=== PATIENT | male | born 1960 | race Caucasian/White ===

== ENCOUNTER → 2018-10-05 | Outpatient (CLI) | payer MEDICARE, MEDICAID ==
[~2018-10-05] MED LIST: E-Z-GAS II EFFERVESCENT PACKET (SODIUM BICARB./CITRIC ACID/SIMETHICONE) As Ordered ONE; E-Z-HD 98% w/w 340GM SUSP BTL As Ordered ONE; E-Z-PAQUE 96% w/w SUSP 176GM BTL As Ordered ONE; ISOVUE-370 76% 100ML VIAL (Q9967) As Ordered ONE
--- NOTE | 2018-10-05 09:52 | REP ---
CT NECK WITH CONTRAST: HISTORY: Neck mass. CONTRAST: Isovue 370, 75 mL. The naso-, sarwat- and hypopharynx, larynx, and subglottic trachea are normal in appearance. There is fatty replacement of the parotid glands. The submandibular and thyroid glands are normal in size and density. Small lymph nodes less than 1 cm in size are present in the internal jugular chains, posterior triangles, submandibular and submental areas. Atherosclerotic calcification is present at the carotid bifurcations. Degenerative change is present in the cervical spine. The lung apices are clear. Minimal mucosal thickening is present in the right maxillary sinus. IMPRESSION: There is no neck mass or adenopathy. Electronically Signed by Martir Vasquez MD 10/05/2018 09:53 A
--- NOTE | 2018-10-05 16:37 | REP ---
Esophagram The procedure was performed under the direct supervision of Dr. Sullivan. The images were reviewed with Dr. Sullivan. A single view PA chest x-ray is submitted as a cassandra developer film. The superior mediastinal structures are midline. The heart size is within normal limits. The lungs are clear. Liquid barium and gas producing granules were given in the erect position as well as liquid barium in the prone oblique positions in order to perform a double contrast esophagram examination. During the oral and pharyngeal stages of deglutition there is laryngeal penetration. There are esophageal transport there are tertiary waves demonstrated. There is no esophagitis stricture mucosal ring or hiatal hernia. Gastroesophageal reflux is not demonstrated on this examination. Impression: 1. Laryngeal penetration 2. Tertiary waves 0.7 minutes of fluoro time was utilized for this procedure. Reviewed by TAMELA Thompson 10/05/2018 03:56 P Electronically Signed by Yeison Sullivan MD 10/05/2018 04:28 P
== END ==
LOC: M RAD 08:52
PROVIDERS: ATTEND Otolaryngology
DX: R22.1 Localized swelling, mass and lump, neck (principal); R13.10 Dysphagia, unspecified; Z86.018 Personal history of other benign neoplasm
CPT/HCPCS: 70491; 74220; Q9967

== ENCOUNTER 2021-09-22 07:18 | Inpatient (IN) | payer MEDICARE, MEDICAID ==
[~2021-09-22] VITALS: Ht 182.9 cm; Wt 185.7 kg
[2021-09-22 10:45] VITALS: BP 108/64
[2021-09-22 12:00] VITALS: BP 111/60
[2021-09-22] MEDS ORDERED: CEFEPIME HCL 1 GM in D5W MINI-BAG PLUS 50 ML IV SCH (12:45)
[2021-09-22] MEDS ORDERED: ALBUTEROL SULFATE 2.5 MG/0.5 ML INH NEB SOLN NEB PRN (12:55)
[2021-09-22 13:12] LABS: ABG BASE EXCESS -1.3 (-2.0-2.0); ABG HCO3 26.6 MEQ/L (22.0-26.0); ABG O2 SATURATION 94.6 % (95.0-99.0); ABG PARTIAL PRESSURE CO2 57.6 mmHg (35.0-45.0); ABG PARTIAL PRESSURE O2 78.1 mmHg (75.0-100.0); ABG STANDARD HCO3 23.3 MEQ/L (22.0-26.0); ABG TOTAL CO2 28.4 MEQ/L (22.0-29.0); ABG pH (ARTERIAL) 7.283 UNITS (7.350-7.450)
[2021-09-22] MEDS ORDERED: HOME MED LIST COMPLETE! XX SCH (13:15)
[2021-09-22 13:19] LABS: BILIRUBIN, URINE MANUAL NEGATIVE (NEGATIVE); GLUCOSE, URINE (UA) MANUAL NEGATIVE (NEGATIVE); KETONE, URINE MANUAL NEGATIVE (NEGATIVE); UROBILINOGEN, URINE MANUAL NORMAL (NORMAL)
[2021-09-22 13:28] LABS: BACTERIA, URINE MOD AMOUNT; SQUAMOUS EPITHELIAL CELL URINE SMALL AMOUNT /hpf (SMALL AMT)
[2021-09-22 13:29] LABS: MUCUS, URINE LARGE AMOUNT (NEGATIVE)
[2021-09-22 13:30] LABS: HYALINE CAST, URINE 40-50 /lpf (0-1)
[2021-09-22 13:31] LABS: GRANULAR CAST, URINE 0-1 /lpf; TRANSITIONAL EPI CELLS, URINE SMALL AMOUNT /hpf
[2021-09-22 13:34] LABS: BASO # 0.1 10^3/uL (0.0-0.2); BASO % 0.4 % (0.0-1.0); EOS # 0.1 10^3/uL (0.0-0.5); EOS % 0.5 % (0.0-3.0); HEMATOCRIT 48.8 % (42.0-52.0); LYMPH # 0.4 10^3/uL (1.5-5.0); LYMPH % 2.2 % (24.0-44.0); MEAN CORPUSCULAR HEMOGLOBIN 29.7 pg (27.0-33.0); MEAN CORPUSCULAR HGB CONC 32.8 g/dl (32.0-36.5); MEAN CORPUSCULAR VOLUME 90.7 fl (80.0-96.0); MONO # 0.5 10^3/uL (0.0-0.8); MONO % 3.2 % (2.0-8.0); NEUTROPHILS % 87.5 % (36.0-66.0); PLATELET COUNT, AUTOMATED 111 10^3/uL (150-450); RED BLOOD COUNT 5.38 10^6/uL (4.30-6.10); WHITE BLOOD COUNT 15.9 10^3/uL (4.0-10.0)
[2021-09-22 13:44] LABS: INR 1.46; PROTHROMBIN TIME 18.2 SECONDS (12.7-14.5)
[2021-09-22 13:45] LABS: PARTIAL THROMBOPLASTIN TIME 37.7 SECONDS (25.9-37.0)
[2021-09-22 14:00] LABS: ALBUMIN 3.2 GM/DL (3.2-5.2); BILIRUBIN,TOTAL 3.6 MG/DL (0.2-1.0); CALCIUM LEVEL 8.3 MG/DL (8.5-10.1); GLOMERULAR FILTRATION RATE 36.7 (>56); POTASSIUM SERUM 5.1 MEQ/L (3.5-5.1); TOTAL PROTEIN 6.8 GM/DL (6.4-8.2)
[2021-09-22 14:37] LABS: CK-MB VALUE MASS 17.3 NG/ML (<3.6); MB/CK RELATIVE INDEX 1.15 (< OR =4)
[2021-09-22] MEDS ORDERED: ASPI81CH33 PO (14:46)
[2021-09-22] MEDS ORDERED: ATOR1TAB21 PO (14:46)
[2021-09-22] MEDS ORDERED: SPIR-10 PO (14:46)
[2021-09-22] MEDS ORDERED: AMLO1TAB25 PO (14:46)
[2021-09-22] MEDS ORDERED: CARV25TA PO (14:46)
[2021-09-22] MEDS ORDERED: METF-838 PO (14:46)
[2021-09-22] MEDS ORDERED: ARNU1INH IN (14:46)
[2021-09-22] MEDS ORDERED: NITR0.4S14 SL (14:46)
[2021-09-22] MEDS ORDERED: LEVO88TA3 PO (14:46)
[2021-09-22] MEDS ORDERED: OMEP-173 PO (14:46)
[2021-09-22] MEDS ORDERED: VENTAER INH (14:46)
[2021-09-22 14:48] LABS: CHOLESTEROL RISK RATIO 2.428 (<5); THYROID STIMULATING HORMONE 1.69 uIU/ML (0.358-3.740)
[2021-09-22 15:15] LABS: HEMOGLOBIN A1c 7.4 %
[2021-09-22] MEDS: CEFEPIME HCL 2 GM in D5W MINI-BAG PLUS 50 ML IV SCH (15:22)
[2021-09-22] MEDS: NS 1,000 ML IV SCH ×2 (15:22→21:55)
[2021-09-22] MEDS: HEPARIN SOD (PORCINE) 5000UNITS/ML 1ML VIAL/SYRINGE SQ SCH ×2 (15:23→21:16)
[2021-09-22] MEDS: ONDANSETRON 4MG/2ML VIAL IV SCH ×2 (15:23→20:00)
[2021-09-22] MEDS: IPRATROPIUM 0.5MG/ALBUTEROL 2.5MG INH SOL UD 3ML (DUONEB) NEB SCH ×2 (16:00→19:40)
[2021-09-22 16:03] VITALS: BP 106/63
[2021-09-22] MEDS: VANCOMYCIN HCL 1,000 MG, VIAL MATE ADAPTER 1 EACH in NS 250 ML IV SCH (16:45)
[2021-09-22] MEDS ORDERED: VANCOMYCIN HCL 1,000 MG, VIAL MATE ADAPTER 1 EACH in NS 250 ML IV ONE (17:00)
[2021-09-22 19:54] VITALS: BP 130/59
[2021-09-22 23:54] VITALS: BP 105/52
[2021-09-23] MEDS: ONDANSETRON 4MG/2ML VIAL IV SCH ×4 (01:00→19:48)
[2021-09-23] MEDS: ACETAMINOPHEN TAB 650MG DOSE (2X325MG) PO PRN ×2 (02:08→16:55)
[2021-09-23] MEDS: CEFEPIME HCL 2 GM in D5W MINI-BAG PLUS 50 ML IV SCH ×3 (02:12→18:19)
[2021-09-23] MEDS: VANCOMYCIN HCL 1,000 MG, VIAL MATE ADAPTER 1 EACH in NS 250 ML IV SCH (03:11)
[2021-09-23 04:05] VITALS: BP 123/64
[2021-09-23] MEDS: HEPARIN SOD (PORCINE) 5000UNITS/ML 1ML VIAL/SYRINGE SQ SCH ×3 (05:09→21:53)
[2021-09-23] MEDS: NS 1,000 ML IV SCH ×2 (06:42→18:20)
[2021-09-23 07:42] LABS: HEMATOCRIT 44.7 % (42.0-52.0); HEMOGLOBIN 14.4 g/dl (13.5-17.5); MEAN CORPUSCULAR HEMOGLOBIN 29.2 pg (27.0-33.0); MEAN CORPUSCULAR HGB CONC 32.2 g/dl (32.0-36.5); MEAN CORPUSCULAR VOLUME 90.7 fl (80.0-96.0); PLATELET COUNT, AUTOMATED 105 10^3/uL (150-450); RED BLOOD COUNT 4.93 10^6/uL (4.30-6.10); WHITE BLOOD COUNT 13.1 10^3/uL (4.0-10.0)
[2021-09-23] MEDS: IPRATROPIUM 0.5MG/ALBUTEROL 2.5MG INH SOL UD 3ML (DUONEB) NEB SCH ×4 (07:51→20:46)
[2021-09-23 08:05] LABS: ALT/SGPT 65 U/L (12-78); BILIRUBIN,TOTAL 2.7 MG/DL (0.2-1.0); BLOOD UREA NITROGEN 38 MG/DL (7-18); CALCIUM LEVEL 8.1 MG/DL (8.5-10.1); CARBON DIOXIDE LEVEL 31 MEQ/L (21-32); CHLORIDE LEVEL 95 MEQ/L (98-107); CREATININE FOR GFR 1.15 MG/DL (0.70-1.30); GLOMERULAR FILTRATION RATE > 60.0 (>56); GLUCOSE, FASTING 116 MG/DL (70-100); POTASSIUM SERUM 4.7 MEQ/L (3.5-5.1); SODIUM LEVEL 129 MEQ/L (136-145); TOTAL PROTEIN 7.2 GM/DL (6.4-8.2)
[2021-09-23 08:16] VITALS: BP 125/57
[2021-09-23 12:00] VITALS: BP 108/64
[2021-09-23] MEDS ORDERED: ISOVUE-370 76% 100ML VIAL As Ordered ONE (14:44)
[2021-09-23] MEDS: methylPREDNISolone 125MG 2ML VIAL IV SCH (16:55)
[2021-09-23 20:00] VITALS: BP 110/62
[2021-09-24] VITALS: BP 115/59
[2021-09-24] MEDS: ONDANSETRON 4MG/2ML VIAL IV SCH ×4 (01:52→21:12)
[2021-09-24] MEDS: methylPREDNISolone 125MG 2ML VIAL IV SCH ×2 (01:52→14:35)
[2021-09-24] MEDS: CEFEPIME HCL 2 GM in D5W MINI-BAG PLUS 50 ML IV SCH ×2 (01:53→09:04)
[2021-09-24 04:00] VITALS: BP 131/64
[2021-09-24] MEDS: HEPARIN SOD (PORCINE) 5000UNITS/ML 1ML VIAL/SYRINGE SQ SCH ×3 (05:49→21:06)
[2021-09-24 05:56] LABS: HEMATOCRIT 40.7 % (42.0-52.0); HEMOGLOBIN 13.2 g/dl (13.5-17.5); MEAN CORPUSCULAR HEMOGLOBIN 29.3 pg (27.0-33.0); MEAN CORPUSCULAR HGB CONC 32.4 g/dl (32.0-36.5); MEAN CORPUSCULAR VOLUME 90.4 fl (80.0-96.0); WHITE BLOOD COUNT 8.9 10^3/uL (4.0-10.0)
[2021-09-24 05:58] LABS: PLATELET COUNT, AUTOMATED 82 10^3/uL (150-450)
[2021-09-24 06:27] LABS: ALBUMIN 2.8 GM/DL (3.2-5.2); ALT/SGPT 54 U/L (12-78); BILIRUBIN,TOTAL 1.4 MG/DL (0.2-1.0); BLOOD UREA NITROGEN 25 MG/DL (7-18); CALCIUM LEVEL 7.4 MG/DL (8.5-10.1); CARBON DIOXIDE LEVEL 32 MEQ/L (21-32); CHLORIDE LEVEL 96 MEQ/L (98-107); CREATININE FOR GFR 0.69 MG/DL (0.70-1.30); GLOMERULAR FILTRATION RATE > 60.0 (>56); GLUCOSE, FASTING 178 MG/DL (70-100); NT-PRO BNP 1557 PG/ML (<125); POTASSIUM SERUM 5.1 MEQ/L (3.5-5.1); SODIUM LEVEL 130 MEQ/L (136-145); TOTAL PROTEIN 6.4 GM/DL (6.4-8.2)
[2021-09-24] MEDS: IPRATROPIUM 0.5MG/ALBUTEROL 2.5MG INH SOL UD 3ML (DUONEB) NEB SCH ×4 (07:08→19:43)
[2021-09-24 07:12] VITALS: BP 157/91
[2021-09-24] MEDS: NS 1,000 ML IV SCH ×2 (08:09→17:16)
[2021-09-24] MEDS ORDERED: GLUCAGON INJ 1MG VIAL SC PRN (10:10)
[2021-09-24] MEDS ORDERED: GLUCOSE 4GM CHEW TABLET PO PRN (10:10)
[2021-09-24] MEDS ORDERED: DEXTROSE 50% 50 ML SYRINGE IV PRN (10:10)
[2021-09-24 12:00] VITALS: BP 104/51
[2021-09-24] MEDS ORDERED: HumaLOG INSULIN (NovoLOG) PER UNIT SC SCH (12:00)
[2021-09-24 16:23] VITALS: BP 115/59
[2021-09-24] MEDS: HumaLOG INSULIN (NovoLOG) PER UNIT SC SCH ×2 (18:05→21:00)
[2021-09-24] MEDS: CIPROFLOXACIN 400 MG in IV 1 EA IV SCH (18:06)
[2021-09-24 20:04] VITALS: BP 136/73
[2021-09-24] MEDS ORDERED: ACETAMINOPHEN 500 MG TAB PO ONE (21:55)
[2021-09-24] MEDS ORDERED: LIDOCAINE 5% (LIDODERM) PATCH TD ONE (21:55)
[2021-09-25] VITALS (7 sets, daily range): BP systolic 128–161; BP diastolic 51–85
[2021-09-25] MEDS: ONDANSETRON 4MG/2ML VIAL IV SCH ×2 (02:00→08:00)
[2021-09-25] MEDS: methylPREDNISolone 125MG 2ML VIAL IV SCH (02:24)
[2021-09-25] MEDS: NS 1,000 ML IV SCH (04:41)
[2021-09-25] MEDS: CIPROFLOXACIN 400 MG in IV 1 EA IV SCH ×2 (05:29→17:52)
[2021-09-25] MEDS: HEPARIN SOD (PORCINE) 5000UNITS/ML 1ML VIAL/SYRINGE SQ SCH ×3 (05:30→20:56)
[2021-09-25 06:23] LABS: HEMATOCRIT 40.8 % (42.0-52.0); HEMOGLOBIN 13.1 g/dl (13.5-17.5); MEAN CORPUSCULAR HEMOGLOBIN 29.4 pg (27.0-33.0); MEAN CORPUSCULAR HGB CONC 32.1 g/dl (32.0-36.5); MEAN CORPUSCULAR VOLUME 91.7 fl (80.0-96.0); RED BLOOD COUNT 4.45 10^6/uL (4.30-6.10); WHITE BLOOD COUNT 9.8 10^3/uL (4.0-10.0)
[2021-09-25 06:24] LABS: PLATELET COUNT, AUTOMATED 91 10^3/uL (150-450)
[2021-09-25 06:58] LABS: ALBUMIN 2.8 GM/DL (3.2-5.2); ALT/SGPT 50 U/L (12-78); BILIRUBIN,TOTAL 0.6 MG/DL (0.2-1.0); BLOOD UREA NITROGEN 27 MG/DL (7-18); CALCIUM LEVEL 7.7 MG/DL (8.5-10.1); CARBON DIOXIDE LEVEL 32 MEQ/L (21-32); CHLORIDE LEVEL 99 MEQ/L (98-107); CREATININE FOR GFR 0.76 MG/DL (0.70-1.30); GLOMERULAR FILTRATION RATE > 60.0 (>56); GLUCOSE, FASTING 180 MG/DL (70-100); POTASSIUM SERUM 5.5 MEQ/L (3.5-5.1); SODIUM LEVEL 132 MEQ/L (136-145); TOTAL PROTEIN 6.4 GM/DL (6.4-8.2)
[2021-09-25] MEDS: IPRATROPIUM 0.5MG/ALBUTEROL 2.5MG INH SOL UD 3ML (DUONEB) NEB SCH ×4 (08:03→20:00)
[2021-09-25] MEDS: **NOTE PATIENT COMMENT** MISC XX SCH (08:29)
[2021-09-25] MEDS: predniSONE 20 MG TAB PO SCH (08:29)
[2021-09-25] MEDS: HumaLOG INSULIN (NovoLOG) PER UNIT SC SCH ×4 (08:29→20:55)
[2021-09-25] MEDS: LEVOTHYROXINE 88MCG TABLET (0.088 MG) PO SCH (09:46)
[2021-09-25] MEDS ORDERED: ONDANSETRON 4MG/2ML VIAL IV PRN (09:50)
[2021-09-25] MEDS: ASPIRIN 81 MG CHEW TABLET PO SCH (09:56)
[2021-09-25] MEDS: ATORVASTATIN 20 MG TAB PO SCH (09:56)
[2021-09-25] MEDS: OMEPRAZOLE 20MG CAP PO SCH (09:56)
[2021-09-25] MEDS ORDERED: SOD POLYSTYRENE SULFONATE SUSP 15 GM/60 ML UD PO ONE (16:00)
[2021-09-25] MEDS: LIDOCAINE 5% (LIDODERM) PATCH TD SCH (23:44)
[2021-09-26 03:15] VITALS: BP 131/74
[2021-09-26] MEDS: HEPARIN SOD (PORCINE) 5000UNITS/ML 1ML VIAL/SYRINGE SQ SCH ×3 (05:05→22:00)
[2021-09-26] MEDS: LEVOTHYROXINE 88MCG TABLET (0.088 MG) PO SCH (05:06)
[2021-09-26] MEDS: CIPROFLOXACIN 400 MG in IV 1 EA IV SCH (05:07)
[2021-09-26 05:35] LABS: HEMATOCRIT 40.4 % (42.0-52.0); MEAN CORPUSCULAR HEMOGLOBIN 29.4 pg (27.0-33.0); MEAN CORPUSCULAR HGB CONC 32.2 g/dl (32.0-36.5); MEAN CORPUSCULAR VOLUME 91.4 fl (80.0-96.0); PLATELET COUNT, AUTOMATED 106 10^3/uL (150-450); RED BLOOD COUNT 4.42 10^6/uL (4.30-6.10); WHITE BLOOD COUNT 10.3 10^3/uL (4.0-10.0)
[2021-09-26 05:54] LABS: ALBUMIN 2.7 GM/DL (3.2-5.2); ALT/SGPT 47 U/L (12-78); BILIRUBIN,TOTAL 0.7 MG/DL (0.2-1.0); BLOOD UREA NITROGEN 28 MG/DL (7-18); CALCIUM LEVEL 7.7 MG/DL (8.5-10.1); CARBON DIOXIDE LEVEL 34 MEQ/L (21-32); CHLORIDE LEVEL 99 MEQ/L (98-107); CREATININE FOR GFR 0.75 MG/DL (0.70-1.30); GLOMERULAR FILTRATION RATE > 60.0 (>56); GLUCOSE, FASTING 121 MG/DL (70-100); POTASSIUM SERUM 4.9 MEQ/L (3.5-5.1); SODIUM LEVEL 134 MEQ/L (136-145); TOTAL PROTEIN 5.9 GM/DL (6.4-8.2)
[2021-09-26 08:00] VITALS: BP 132/88
[2021-09-26] MEDS: IPRATROPIUM 0.5MG/ALBUTEROL 2.5MG INH SOL UD 3ML (DUONEB) NEB SCH ×3 (08:00→15:03)
[2021-09-26] MEDS: OMEPRAZOLE 20MG CAP PO SCH (08:17)
[2021-09-26] MEDS: ATORVASTATIN 20 MG TAB PO SCH (08:17)
[2021-09-26] MEDS: predniSONE 20 MG TAB PO SCH (08:17)
[2021-09-26] MEDS: HumaLOG INSULIN (NovoLOG) PER UNIT SC SCH ×4 (08:17→20:48)
[2021-09-26] MEDS: **NOTE PATIENT COMMENT** MISC XX SCH (08:17)
[2021-09-26] MEDS: ASPIRIN 81 MG CHEW TABLET PO SCH (08:17)
[2021-09-26] MEDS ORDERED: BACTRIM 160MG/800MG DS TAB PO SCH (09:00)
[2021-09-26] MEDS: LACTOBACILLUS ACIDOPHILUS CAP (BACID) PO SCH ×2 (10:13→17:35)
[2021-09-26 16:00] VITALS: BP 142/76
[2021-09-26 19:18] VITALS: BP 135/74
[2021-09-26] MEDS: LIDOCAINE 5% (LIDODERM) PATCH TD SCH (20:47)
[2021-09-26] MEDS: CARVedilol 12.5 MG TAB PO SCH (20:47)
[2021-09-26] MEDS: BACTRIM 160MG/800MG DS TAB PO SCH (20:48)
[2021-09-27 04:00] VITALS: BP 135/86
[2021-09-27 05:37] LABS: HEMATOCRIT 39.8 % (42.0-52.0); HEMOGLOBIN 12.8 g/dl (13.5-17.5); MEAN CORPUSCULAR HEMOGLOBIN 29.3 pg (27.0-33.0); MEAN CORPUSCULAR HGB CONC 32.2 g/dl (32.0-36.5); MEAN CORPUSCULAR VOLUME 91.1 fl (80.0-96.0); PLATELET COUNT, AUTOMATED 104 10^3/uL (150-450); RED BLOOD COUNT 4.37 10^6/uL (4.30-6.10); WHITE BLOOD COUNT 6.2 10^3/uL (4.0-10.0)
[2021-09-27] MEDS: HEPARIN SOD (PORCINE) 5000UNITS/ML 1ML VIAL/SYRINGE SQ SCH ×3 (05:43→21:54)
[2021-09-27] MEDS: LEVOTHYROXINE 88MCG TABLET (0.088 MG) PO SCH (05:43)
[2021-09-27 05:58] LABS: ALBUMIN 2.8 GM/DL (3.2-5.2); ALT/SGPT 38 U/L (12-78); BILIRUBIN,TOTAL 0.6 MG/DL (0.2-1.0); BLOOD UREA NITROGEN 27 MG/DL (7-18); CALCIUM LEVEL 7.9 MG/DL (8.5-10.1); CARBON DIOXIDE LEVEL 37 MEQ/L (21-32); CHLORIDE LEVEL 101 MEQ/L (98-107); GLOMERULAR FILTRATION RATE > 60.0 (>56); GLUCOSE, FASTING 119 MG/DL (70-100); POTASSIUM SERUM 4.7 MEQ/L (3.5-5.1); SODIUM LEVEL 140 MEQ/L (136-145); TOTAL PROTEIN 5.8 GM/DL (6.4-8.2)
[2021-09-27] MEDS: HumaLOG INSULIN (NovoLOG) PER UNIT SC SCH ×4 (07:30→21:00)
[2021-09-27 07:59] VITALS: BP 135/84
[2021-09-27] MEDS: **NOTE PATIENT COMMENT** MISC XX SCH (08:41)
[2021-09-27] MEDS: CARVedilol 12.5 MG TAB PO SCH ×2 (08:46→21:55)
[2021-09-27] MEDS: OMEPRAZOLE 20MG CAP PO SCH (08:47)
[2021-09-27] MEDS: ASPIRIN 81 MG CHEW TABLET PO SCH (08:47)
[2021-09-27] MEDS: LACTOBACILLUS ACIDOPHILUS CAP (BACID) PO SCH ×2 (08:47→17:57)
[2021-09-27] MEDS: ATORVASTATIN 20 MG TAB PO SCH (08:47)
[2021-09-27] MEDS: BACTRIM 160MG/800MG DS TAB PO SCH (08:48)
[2021-09-27] MEDS: predniSONE 20 MG TAB PO SCH (08:48)
[2021-09-27] MEDS ORDERED: SPIRONOLACTONE 25 MG TAB PO SCH (09:00)
[2021-09-27] MEDS: ceFAZolin SOD 2 GM in IV 1 EA IV SCH ×2 (12:07→21:56)
[2021-09-27 12:09] VITALS: BP 134/80
[2021-09-27 16:00] VITALS: BP 140/80
[2021-09-27 19:55] VITALS: BP 121/57
[2021-09-27] MEDS: LIDOCAINE 5% (LIDODERM) PATCH TD SCH (21:00)
[2021-09-28] MEDS: ceFAZolin SOD 2 GM in IV 1 EA IV SCH ×3 (05:01→23:44)
[2021-09-28] MEDS: LEVOTHYROXINE 88MCG TABLET (0.088 MG) PO SCH (05:53)
[2021-09-28] MEDS: HEPARIN SOD (PORCINE) 5000UNITS/ML 1ML VIAL/SYRINGE SQ SCH ×3 (05:53→21:54)
[2021-09-28 06:00] VITALS: BP 142/78
[2021-09-28 06:06] LABS: HEMATOCRIT 40.9 % (42.0-52.0); HEMOGLOBIN 13.4 g/dl (13.5-17.5); MEAN CORPUSCULAR HEMOGLOBIN 29.3 pg (27.0-33.0); MEAN CORPUSCULAR HGB CONC 32.8 g/dl (32.0-36.5); MEAN CORPUSCULAR VOLUME 89.5 fl (80.0-96.0); PLATELET COUNT, AUTOMATED 161 10^3/uL (150-450); RED BLOOD COUNT 4.57 10^6/uL (4.30-6.10); WHITE BLOOD COUNT 7.6 10^3/uL (4.0-10.0)
[2021-09-28 06:41] LABS: ALT/SGPT 36 U/L (12-78); BILIRUBIN,TOTAL 0.7 MG/DL (0.2-1.0); BLOOD UREA NITROGEN 23 MG/DL (7-18); CALCIUM LEVEL 8.2 MG/DL (8.5-10.1); CARBON DIOXIDE LEVEL 34 MEQ/L (21-32); CHLORIDE LEVEL 100 MEQ/L (98-107); CREATININE FOR GFR 0.74 MG/DL (0.70-1.30); GLOMERULAR FILTRATION RATE > 60.0 (>56); GLUCOSE, FASTING 126 MG/DL (70-100); POTASSIUM SERUM 4.4 MEQ/L (3.5-5.1); SODIUM LEVEL 138 MEQ/L (136-145); TOTAL PROTEIN 6.6 GM/DL (6.4-8.2)
[2021-09-28] MEDS: HumaLOG INSULIN (NovoLOG) PER UNIT SC SCH ×4 (08:41→21:00)
[2021-09-28] MEDS: LACTOBACILLUS ACIDOPHILUS CAP (BACID) PO SCH ×2 (08:42→18:27)
[2021-09-28] MEDS: OMEPRAZOLE 20MG CAP PO SCH (08:42)
[2021-09-28] MEDS: ASPIRIN 81 MG CHEW TABLET PO SCH (08:42)
[2021-09-28] MEDS: FUROSEMIDE 20 MG TAB PO SCH (08:42)
[2021-09-28] MEDS: CARVedilol 12.5 MG TAB PO SCH ×2 (08:43→21:51)
[2021-09-28] MEDS: ATORVASTATIN 20 MG TAB PO SCH (08:43)
[2021-09-28] MEDS: **NOTE PATIENT COMMENT** MISC XX SCH (08:44)
[2021-09-28] MEDS: predniSONE 20 MG TAB PO SCH (08:44)
[2021-09-28] MEDS ORDERED: OMEP-173 PO ×2 (12:55→12:59)
[2021-09-28] MEDS ORDERED: VENTAER INH ×2 (12:55→12:59)
[2021-09-28] MEDS ORDERED: ARNU1INH IN ×2 (12:55→12:59)
[2021-09-28] MEDS ORDERED: PRED10TA2 PO ×2 (12:55→12:59)
[2021-09-28] MEDS ORDERED: DOXY-350 PO ×2 (12:56→12:59)
[2021-09-28] MEDS ORDERED: CEPH500C PO ×2 (12:56→12:59)
[2021-09-28] MEDS ORDERED: FURO20TA2 PO ×2 (12:56→12:59)
[2021-09-28] MEDS ORDERED: RISATAB3 PO ×2 (12:56→12:59)
[2021-09-28 14:00] VITALS: BP 128/61
[2021-09-28 18:00] VITALS: BP 139/65
[2021-09-28] MEDS: LIDOCAINE 5% (LIDODERM) PATCH TD SCH (21:00)
[2021-09-28 21:51] VITALS: BP 135/66
[2021-09-28] MEDS: DOXYCYCLINE HYCLATE 100 MG in D5W MINI-BAG PLUS 100 ML IV SCH (21:53)
[2021-09-29] MEDS: ceFAZolin SOD 2 GM in IV 1 EA IV SCH ×2 (04:50→12:00)
[2021-09-29] MEDS: HEPARIN SOD (PORCINE) 5000UNITS/ML 1ML VIAL/SYRINGE SQ SCH ×2 (05:52→14:00)
[2021-09-29] MEDS: LEVOTHYROXINE 88MCG TABLET (0.088 MG) PO SCH (05:52)
[2021-09-29 06:00] VITALS: BP 148/74
[2021-09-29 06:20] LABS: HEMOGLOBIN 13.5 g/dl (13.5-17.5); MEAN CORPUSCULAR HEMOGLOBIN 29.1 pg (27.0-33.0); MEAN CORPUSCULAR HGB CONC 32.9 g/dl (32.0-36.5); MEAN CORPUSCULAR VOLUME 88.4 fl (80.0-96.0); PLATELET COUNT, AUTOMATED 175 10^3/uL (150-450); RED BLOOD COUNT 4.64 10^6/uL (4.30-6.10); WHITE BLOOD COUNT 7.5 10^3/uL (4.0-10.0)
[2021-09-29 06:52] LABS: ALBUMIN 2.9 GM/DL (3.2-5.2); ALT/SGPT 30 U/L (12-78); BILIRUBIN,TOTAL 0.8 MG/DL (0.2-1.0); BLOOD UREA NITROGEN 20 MG/DL (7-18); C REACTIVE PROTEIN QUANTITATIV 1.16 MG/DL (0.00-0.30); CALCIUM LEVEL 7.9 MG/DL (8.5-10.1); CARBON DIOXIDE LEVEL 35 MEQ/L (21-32); CHLORIDE LEVEL 100 MEQ/L (98-107); GLOMERULAR FILTRATION RATE > 60.0 (>56); GLUCOSE, FASTING 133 MG/DL (70-100); MAGNESIUM LEVEL 1.9 MG/DL (1.8-2.4); POTASSIUM SERUM 4.3 MEQ/L (3.5-5.1); SODIUM LEVEL 138 MEQ/L (136-145)
[2021-09-29 08:08] LABS: ERYTHROCYTE SEDIMENTATION RATE 9 mm/hr (0-20)
[2021-09-29] MEDS: CARVedilol 12.5 MG TAB PO SCH (09:00)
[2021-09-29] MEDS: **NOTE PATIENT COMMENT** MISC XX SCH (09:00)
[2021-09-29] MEDS: ATORVASTATIN 20 MG TAB PO SCH (09:22)
[2021-09-29] MEDS: DOXYCYCLINE HYCLATE 100 MG in D5W MINI-BAG PLUS 100 ML IV SCH (09:22)
[2021-09-29] MEDS: HumaLOG INSULIN (NovoLOG) PER UNIT SC SCH ×2 (09:22→13:00)
[2021-09-29] MEDS: FUROSEMIDE 20 MG TAB PO SCH (09:22)
[2021-09-29] MEDS: ASPIRIN 81 MG CHEW TABLET PO SCH (09:23)
[2021-09-29] MEDS: LACTOBACILLUS ACIDOPHILUS CAP (BACID) PO SCH (09:23)
[2021-09-29] MEDS: predniSONE 20 MG TAB PO SCH (09:23)
[2021-09-29] MEDS: OMEPRAZOLE 20MG CAP PO SCH (09:25)
[2021-09-29 14:00] VITALS: BP 138/70
== END 2021-09-29 15:47 | disposition home or self-care (01) | DRG 871 ==
LOC: M PCU 11:21 → M MS4PR 09-27 19:51 → M MSPAV 09-28 18:06
PROVIDERS: ADMIT Internal Medicine; ATTEND Family Medicine
DX: A40.9 Streptococcal sepsis, unspecified (principal); J96.01 Acute respiratory failure with hypoxia; I50.33 Acute on chronic diastolic (congestive) heart failure; E66.2 Morbid (severe) obesity with alveolar hypoventilation; N39.0 Urinary tract infection, site not specified; N17.9 Acute kidney failure, unspecified; Z68.43 Body mass index [BMI] 50.0-59.9, adult; J45.901 Unspecified asthma with (acute) exacerbation; M62.82 Rhabdomyolysis; R17 Unspecified jaundice; L03.116 Cellulitis of left lower limb; E03.9 Hypothyroidism, unspecified; E11.42 Type 2 diabetes mellitus with diabetic polyneuropathy; I11.0 Hypertensive heart disease with heart failure; F32.A Depression, unspecified; N30.90 Cystitis, unspecified without hematuria; J44.9 Chronic obstructive pulmonary disease, unspecified; E78.5 Hyperlipidemia, unspecified; M54.50 Low back pain, unspecified; B95.5 Unspecified streptococcus as the cause of diseases classified elsewhere; K21.9 Gastro-esophageal reflux disease without esophagitis; B96.4 Proteus (mirabilis) (morganii) as the cause of diseases classified elsewhere; R33.9 Retention of urine, unspecified; E87.5 Hyperkalemia; I25.10 Atherosclerotic heart disease of native coronary artery without angina pectoris; R59.0 Localized enlarged lymph nodes; E55.9 Vitamin D deficiency, unspecified; E11.51 Type 2 diabetes mellitus with diabetic peripheral angiopathy without gangrene; Z90.49 Acquired absence of other specified parts of digestive tract; Z95.5 Presence of coronary angioplasty implant and graft; Z96.651 Presence of right artificial knee joint; Z87.891 Personal history of nicotine dependence

== ENCOUNTER → 2021-11-18 | Outpatient (CLI) | payer MEDICARE, MEDICAID ==
[~2021-11-18] MED LIST changes: +AMLO1TAB25 PO; +ARNU1INH IN; +ASPI81CH33 PO; +ATOR1TAB21 PO; +CARV25TA PO; +CARV6.25 PO; +CEPH500C PO; +DOXY-350 PO; -E-Z-GAS II EFFERVESCENT PACKET (SODIUM BICARB./CITRIC ACID/SIMETHICONE) As Ordered ONE; -E-Z-HD 98% w/w 340GM SUSP BTL As Ordered ONE; -E-Z-PAQUE 96% w/w SUSP 176GM BTL As Ordered ONE; +FURO20TA2 PO; -ISOVUE-370 76% 100ML VIAL (Q9967) As Ordered ONE; +LEVO88TA3 PO; +LIDOCAINE 1% MDV 20ML VIAL As Ordered ONE; +METF-838 PO; +NITR0.4S14 SL; +OMEP-173 PO; +PRED10TA2 PO; +RISATAB3 PO; +SPIR-10 PO; +VENTAER INH
[2021-11-18 13:50] VITALS: BP 159/94
== END ==
LOC: M IRPRO 13:34
PROVIDERS: ATTEND Internal Medicine Medical Oncology
DX: R59.1 Generalized enlarged lymph nodes (principal)